=== PATIENT | male | born 1955 | race Caucasian/White ===

== ENCOUNTER → 2017-03-15 | Outpatient (CLI) | payer MEDICARE ==
--- NOTE | 2017-03-15 12:37 | Diagnostic Imaging Report ---
INDICATION: Sudden left eye blindness. TECHNIQUE: Routine non contrast-enhanced axial images were obtained from the skull base to the vertex. COMPARISON: None. FINDINGS: The ventricles and cortical sulci are diffusely prominent, compatible with age-related volume loss. There are confluent areas of abnormal, low attenuation in the periventricular white matter. This is consistent with small vessel ischemic changes; age-indeterminate. There is no prior study available for comparison. There is no midline shift or mass-effect. No acute intra-axial hemorrhage is seen. There are no abnormal areas of increased or decreased density to suggest acute hemorrhage or edema. No extra-axial masses or collections are present. The bony calvarium is intact. The visualized paranasal sinuses are unremarkable. The mastoid air cells are clear. IMPRESSION: 1. No acute intracranial abnormality. No CT evidence of mass, acute infarct or intracranial hemorrhage. 2. Small vessel ischemic changes in the periventricular and subcortical white matter; likely chronic. Dictated by: Dictated on workstation # [id number]
== END ==
LOC: RAD 12:10
PROVIDERS: ATTEND Nurse Practitioner Family
DX: H53.132 Sudden visual loss, left eye (principal)
CPT/HCPCS: 70450

== ENCOUNTER → 2021-05-31 | Outpatient (CLI) | payer MEDICARE | LOC: WOUNDCARE 13:32 | PROVIDERS: ATTEND Surgery | DX: I70.245 Atherosclerosis of native arteries of left leg with ulceration of other part of foot (principal); L97.522 Non-pressure chronic ulcer of other part of left foot with fat layer exposed; T65.222A Toxic effect of tobacco cigarettes, intentional self-harm, initial encounter; F17.218 Nicotine dependence, cigarettes, with other nicotine-induced disorders | CPT/HCPCS: A6260; G0463; 99213 ==

== ENCOUNTER → 2021-05-31 | Outpatient (CLI) | payer MEDICARE ==
--- NOTE | 2021-05-31 17:23 | Diagnostic Imaging Report ---
INDICATION: Soft tissue ulcer. COMPARISON: None FINDINGS: Multiple radiographic views of the left foot were obtained. Patient is status post previous amputation of the 3rd toe. Note is made of swelling and edema of the distal margins of the 2nd toe. Evaluation of the underlying osseous structures suggest subtle abnormal lucent appearance to the medial margins of the tuft of the distal phalanx. Findings are concerning for underlying osteolysis, as can be seen with osteomyelitis. Remaining osseous structures are intact. There is no evidence of acute fracture or dislocation. No unexpected radiopaque foreign bodies are seen. IMPRESSION: 1. Soft tissue swelling of the 2nd toe with findings concerning for potential osteomyelitis of the distal phalanx. Dictated by: Dictated on workstation # [id number]
== END ==
LOC: RAD 14:40
PROVIDERS: ATTEND Surgery
DX: I70.245 Atherosclerosis of native arteries of left leg with ulceration of other part of foot (principal); L97.522 Non-pressure chronic ulcer of other part of left foot with fat layer exposed; T65.222A Toxic effect of tobacco cigarettes, intentional self-harm, initial encounter; F17.218 Nicotine dependence, cigarettes, with other nicotine-induced disorders
CPT/HCPCS: 73630

== ENCOUNTER → 2021-06-09 | Outpatient (CLI) | payer MEDICARE | LOC: WOUNDCARE 14:56 | PROVIDERS: ATTEND Surgery | DX: I70.245 Atherosclerosis of native arteries of left leg with ulceration of other part of foot (principal); L97.522 Non-pressure chronic ulcer of other part of left foot with fat layer exposed; T65.222A Toxic effect of tobacco cigarettes, intentional self-harm, initial encounter; I96 Gangrene, not elsewhere classified; F17.218 Nicotine dependence, cigarettes, with other nicotine-induced disorders | CPT/HCPCS: 99213 ==

== ENCOUNTER → 2021-06-11 | Outpatient (CLI) | payer MEDICARE | LOC: CARD 10:37 | PROVIDERS: ATTEND Internal Medicine Cardiovascular Disease | DX: I34.0 Nonrheumatic mitral (valve) insufficiency (principal); I10 Essential (primary) hypertension | CPT/HCPCS: 93306 ==

== ENCOUNTER → 2021-06-14 | Outpatient (CLI) | payer MEDICARE ==
[~2021-06-14] MED LIST: ASPI-1238 PO; ASPI-808 PO; ATOR20TA66 PO; CLOP75TA28 PO; GBPN600T PO; MIDAZOLAM 5 MG/5 ML (VERSED) VIAL ONE; PANT40TA52 PO; REGADENOSON 0.4 MG/5 ML SYR (LEXISCAN) IV ONE; SULF-11 PO; fentaNYL INJ 100 MCG/2 ML AMP ONE
[2021-06-14] MEDS: CATHETER FLUSH 10 ML SYR IV PRN ×2 (07:37→08:55)
[2021-06-14 08:53] VITALS: BP 161/85
--- NOTE | 2021-06-14 11:06 | Cardiology Stress Test Report ---
Stress Test Report Date of Procedure/Referring: Date of Procedure: Jun 14, 2021 PCP Eva Beard MD Admitting Physician Center/[facility] Indications: CP Baseline Heart Rate: 58 Baseline Blood Pressure: Blood Pressure Systolic: 161 Blood Pressure Diastolic: 85 Baseline Vitals Vital Signs Date Time Temp Pulse Resp B/P (MAP) Pulse Ox O2 Delivery O2 Flow Rate FiO2 06/14/21 08:53 50 16 161/85 (110) 98 Room Air Baseline EKG: Baseline EKG: NSR Summary After explaining the procedure to the patient, he signed a consent and then brought to the stress nuclear laboratory. Patient received 0.4 mg Lexiscan for stress test, ECG, heart rate and blood pressure were monitored continuously. Resting and stress dose of radio tracer were injected, imaging was acquired and reviewed in short axis, horizontal long axis and vertical long axis views. TID: 1.07 SSS: 1 SDS: 1 EF: 60 1. Patient tolerated Lexiscan well 2. Diaphragmatic attenuation with mild decreased uptake at the inferoapical segment with mild reversibility probably due to diaphragmatic attenuation, no significant ischemia or infarction on SPECT images 3. Normal left ventricular size, EF 60% EVA BEARD MD Jun 14, 2021 11:06
== END ==
LOC: CARD 07:45
PROVIDERS: ATTEND Internal Medicine Cardiovascular Disease
DX: I25.10 Atherosclerotic heart disease of native coronary artery without angina pectoris (principal); I10 Essential (primary) hypertension
CPT/HCPCS: 78452; 93017; A9502

== ENCOUNTER → 2021-06-15 | Outpatient (CLI) | payer MEDICARE ==
[~2021-06-15] MED LIST changes: -MIDAZOLAM 5 MG/5 ML (VERSED) VIAL ONE; -REGADENOSON 0.4 MG/5 ML SYR (LEXISCAN) IV ONE; -fentaNYL INJ 100 MCG/2 ML AMP ONE
== END ==
LOC: WOUNDCARE 12:27
PROVIDERS: ATTEND Surgery
DX: I70.245 Atherosclerosis of native arteries of left leg with ulceration of other part of foot (principal); L97.222 Non-pressure chronic ulcer of left calf with fat layer exposed; T65.222A Toxic effect of tobacco cigarettes, intentional self-harm, initial encounter; I96 Gangrene, not elsewhere classified; F17.218 Nicotine dependence, cigarettes, with other nicotine-induced disorders
CPT/HCPCS: 99212

== ENCOUNTER 2021-06-16 13:00 | Day surgery (SDC) | payer MEDICARE ==
[~2021-06-16] VITALS: Ht 170 cm; Wt 77.0 kg
[2021-06-16 11:27] VITALS: BP 145/95
[2021-06-16 11:32] LABS: HEMATOCRIT 53 % (40-54); HEMOGLOBIN 16.5 g/dL (13.3-17.7); MEAN CORPUSCULAR HEMOGLOBIN 30 pg (25-34); MEAN CORPUSCULAR HGB CONC 31 g/dL (32-36); MEAN CORPUSCULAR VOLUME 95 fL (80-99); MEAN PLATELET VOLUME 10.4 fL (9.0-12.2); PLATELET COUNT 251 10^3/uL (130-400); WHITE BLOOD COUNT 8.7 10^3/uL (4.3-11.0)
[2021-06-16 11:34] LABS: BILIRUBIN,URINE NEGATIVE (NEGATIVE); CLARITY,URINE CLEAR; COLOR,URINE YELLOW; GLUCOSE, URINE (UA) NEGATIVE (NEGATIVE); KETONES,URINE NEGATIVE (NEGATIVE); LEUKOCYTE ESTERASE ,URINE TRACE (NEGATIVE); NITRITE,URINE NEGATIVE (NEGATIVE); PROTEIN,URINE NEGATIVE (NEGATIVE)
[2021-06-16] MEDS: NS IV 1000 ML 1,000 ML IV SCH ×3 (11:36→17:16)
--- NOTE | 2021-06-16 11:40 | Diagnostic Imaging Report ---
INDICATION: Preoperative evaluation prior to peripheral angiography and potentially angioplasty.. TECHNIQUE: Single view chest 11:26 AM. CORRELATION STUDY: None FINDINGS: The heart size, mediastinal configuration and pulmonary vascularity are within normal limits. The lungs are clear with no consolidating infiltrate. Very slight tenting perhaps eventration left diaphragm centrally. There is no significant effusion or pneumothorax. Prominent hypertrophic changes right acromioclavicular joint. IMPRESSION: 1. Negative for acute abnormality of the chest. Dictated by: Dictated on workstation # [id number]
[2021-06-16 11:45] LABS: BACTERIA,URINE NEGATIVE /HPF; WBC,URINE 0-2 /HPF
[2021-06-16 11:48] LABS: INR 0.9 (0.8-1.4); PROTHROMBIN TIME PATIENT 12.8 SEC (12.2-14.7)
[2021-06-16 11:56] LABS: ALBUMIN 4.1 GM/DL (3.2-4.5); BILIRUBIN,TOTAL 0.5 MG/DL (0.1-1.0); CALCIUM 9.7 MG/DL (8.5-10.1); CREATININE SERUM 1.03 MG/DL (0.60-1.30); POTASSIUM 4.6 MMOL/L (3.6-5.0); TOTAL PROTEIN 7.2 GM/DL (6.4-8.2)
[~2021-06-16 13:00] MED LIST changes: -ASPI-1238 PO; -ATOR20TA66 PO; -CLOP75TA28 PO; +HEParin (CATH LAB) 2,000 ML IV ONE; +LIDOCAINE 1% INJ 20 ML 20 ML VIAL ONE; +MIDAZOLAM 5 MG/5 ML (VERSED) VIAL IV ONE; +NS IV 1000 ML 1,000 ML ONE; -PANT40TA52 PO; +fentaNYL INJ 100 MCG/2 ML AMP IV ONE
[2021-06-16] MEDS ORDERED: HEParin 1000 UNIT/ML (10ML VIAL) FOR BOLUS ONE (13:26)
[2021-06-16] MEDS ORDERED: MIDAZOLAM 5 MG/5 ML (VERSED) VIAL ONE (13:39)
[2021-06-16] MEDS ORDERED: fentaNYL INJ 100 MCG/2 ML AMP ONE (13:39)
[2021-06-16] MEDS ORDERED: NITRO DRIP 25000 MCG/D5W 250 ML IV ONE (13:39)
--- NOTE | 2021-06-16 14:53 | Conscious Sedation/ASA ---
Conscious Sedation Pre-Proced Time 12:00 ASA Score 3 For ASA 3 and 4: Consider anesthesia and medical clearance. Also, for patients with a history of failed moderate sedation consider anesthesia. Airway Lungs Heart ASA score ASA 1: a normal healthy patient ASA 2: a patient with a mild systemic disease (mid diabetes, controlled hypertension, obesity ASA 3: a patient with a severe systemic disease that limits activity (angina, COPD, prior Myocardial infarction) ASA 4: a patient with an incapacitating disease that is a constant threat to life (CHF, renal failure) ASA 5: a moribund patient not expected to survive 24 hrs. (ruptured aneurysm) ASA 6: a declared brain- patient whose organs are being harvested. For emergent operations, add the letter E after the classification Mallampati Classification Grade 3 Sedation Plan Analgesia, Amnesia, Plan communicated to team members, Discussed options with patient/fam, Discussed risks with patient/fam The patient is an appropriate candidate to undergo the planned procedure, sedation, and anesthesia. The patient immediately re-assessed prior to indication. EVA BOWERS MD Jun 16, 2021 14:53
[2021-06-16] MEDS ORDERED: PATIENT MAY USE OWN MEDS, ALL PO SCH (15:00)
--- NOTE | 2021-06-16 15:03 | Cardiac Cath Report ---
Cardiac Cath Report Physician (s)/Maintenance Shop Laborer (s) Physician EVA BOWERS MD Pre-Procedure Diagnosis Pre-Procedure Diagnosis: Peripheral arterial disease Post-Procedure Note Procedure Start Date: Jun 16, 2021 Name of Procedure: Bilateral lower extremity runoff Third order Additional imaging x3 Stenting of the left SFA Balloon angioplasty to the left anterior tibial Findings/Procedure Note PROCEDURE NOTE: 65-year-old with known history of peripheral arterial disease, had toe ulcer, had an abnormal BATSHEVA more significant on the left with a ulcer on the left second toe, scheduled for peripheral angiogram possible angioplasty. After explaining the procedure to the patient, all pros and cons were explained, all questions were answered. The patient signed the consent and then he was placed on the cardiac catheterization laboratory. The patient was placed on the cardiac catheterization laboratory. Groin was prepped SL fashion local anesthesia was used. Sheath placed in the right femoral artery, runoff to the right leg was done then rim catheter was advanced to the abdominal aorta at the bifurcation and I did angiogram evaluated the bifurcation, I could not advance the wire through the left with a rim catheter, used UF catheter for better support then advanced a Storq catheter to the proximal SFA, advanced a straight catheter to the left common femoral artery and did runoff to the left leg then DSA below the knee. Patient has severe stenosis at multiple segment proximal SFA moderate stenosis at the mid SFA and occlusion of the anterior tibial artery. Patient was given 5000 units of heparin, wire was advanced and the sheath was exchanged into a long 6 Lithuanian sheath. I placed the sheath at the ostium of the left SFA subsequently there was no flow retracted the sheath to the left common femoral, patient continued to have severe spasm with no flow. I had difficulty advancing the wire but after multiple maneuvers I was able to advance command 18 wire down to the mid SFA then using the mini catheter I remove the command 18 advanced command 14 wire down to the posterior tibial artery. Did not balloon dilatation to the left SFA using Avery fourteen 5 x 200 with 1 inflation then deployed absolute Pro stent to the proximal left SFA 6 x 80 post dilated with 5.5 balloon with good results then I advanced mini catheter down to the anterior tibial artery and did injection the anterior tibial artery which was occluded advanced command 14 down to the distal AT then proceeded with balloon angioplasty using Avery fourteen 2.5 x 120 mm with multiple inflation down to the ankle then angiogram showed significant improvement in the blood flow. Still occlusion below the ankle. I retracted the catheter and did an injection in the tibioperoneal trunk and evaluated the posterior tibial and the peroneal artery down to the foot which showed excellent flow. The sheath was retracted and exchanged back to short 6 Lithuanian sheath and advanced rim catheter again did evaluation to the common iliac artery with the aneurysm and the severe stenosis. I decided against proceeding with intervention on that artery due to the high risk of rupture and complication. Patient will need referral for vascular surgery FINDINGS: Right lower extremity, moderate stenosis at the mid right common iliac artery, moderate to severe stenosis at the ostial/proximal right common femoral artery with good flow down to the trifurcation, three-vessel below the trifurcation. 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 Successful stenting of the proximal left SFA using absolute Pro 6 x 80 with excellent results 2. Successful balloon angioplasty to a chronically occluded anterior tibial artery and reestablishment of flow down to the foot 3. Moderate disease at the mid left SFA 4. 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 Moderate stenosis of the right common iliac artery with moderate severe stenosis at the proximal right SFA DISCUSSION AND RECOMMENDATIONS: Patient was started on aspirin and Plavix, he will be referred for vascular surgery evaluation versus high risk intervention with covered stent to the iliac artery Anesthesia Type: Conscious Sedation Estimated blood loss (mL): 30 ml Contrast Amount: 92 ml Total Radiation Dose: 903 mGy Post-Procedure Diagnosis Post-operative diagnosis: Ischemic foot ulcer Peripheral artery disease Hyperlipidemia Tobaccoism EVA BOWERS MD Jun 16, 2021 15:03
[2021-06-16] MEDS ORDERED: ASPIRIN 325 MG (5 GR) TABLET ONE (15:09)
[2021-06-16] MEDS ORDERED: CLOPIDOGREL 300 MG (PLAVIX) TABLET PO ONE (15:10)
[2021-06-16 15:30] VITALS: BP 131/77
[2021-06-16 15:45] VITALS: BP 147/84
[2021-06-16 16:00] VITALS: BP 154/94
[2021-06-16] MEDS ORDERED: oxyCODONE/APAP 5/325MG (PERCOCET 5) TABLET PO PRN (17:00)
[2021-06-16] MEDS ORDERED: oxyCODONE/APAP 5/325MG (PERCOCET 5) TABLET ONE (17:04)
[2021-06-16] MEDS: GABAPENTIN 600 MG (NEURONTIN) TAB PO SCH ×2 (17:09→21:12)
[2021-06-16] MEDS: NICOTINE 21 MG (NICODERM) PATCH TD SCH (17:09)
[2021-06-16] MEDS: TRIM/SULFAMETH 160/800 (SEPTRA DS) TAB PO SCH (17:09)
[2021-06-16] MEDS ORDERED: ONDANSETRON 4 MG/2 ML (SDV) Z0FRAN IVP PRN (18:30)
[2021-06-16 20:00] VITALS: BP 176/84
[2021-06-16] MEDS ORDERED: NON-FORMULARY MEDICATION 1 EA EA (Sulfamethoxazole/Trimethoprim (Sulfamethoxazole-Tmp Ss T PO SCH (21:00)
[2021-06-17] VITALS: BP 138/75
[2021-06-17] MEDS: NS IV 1000 ML 1,000 ML IV SCH (01:18)
[2021-06-17 04:00] VITALS: BP 132/54
[2021-06-17 05:08] LABS: HEMATOCRIT 47 % (40-54); MEAN CORPUSCULAR HEMOGLOBIN 30 pg (25-34); MEAN CORPUSCULAR HGB CONC 32 g/dL (32-36); MEAN CORPUSCULAR VOLUME 94 fL (80-99); MEAN PLATELET VOLUME 9.8 fL (9.0-12.2); PLATELET COUNT 218 10^3/uL (130-400); WHITE BLOOD COUNT 11.5 10^3/uL (4.3-11.0)
[2021-06-17 05:20] LABS: POTASSIUM 4.2 MMOL/L (3.6-5.0)
[2021-06-17 05:21] LABS: CALCIUM 9.2 MG/DL (8.5-10.1)
[2021-06-17 05:25] LABS: CREATININE SERUM 0.81 MG/DL (0.60-1.30)
[2021-06-17] MEDS ORDERED: PANT40TA52 PO (06:15)
[2021-06-17] MEDS ORDERED: CLOP75TA28 PO (06:15)
[2021-06-17] MEDS ORDERED: ATOR20TA66 PO (06:15)
[2021-06-17] MEDS ORDERED: ASPI-1238 PO (06:15)
--- NOTE | 2021-06-17 06:16 | Discharge Inst-Post CATH ---
Discharge Inst-CATH/EP Problems Reviewed?: Yes Post Cardiac Cath/EP D/C Inst Follow Up/Plan Appointment with Dr Beard in 2-4 weeks <b>CARDIAC CATH/EP PROCEDURE DISCHARGE INSTRUCTIONS</b> ACTIVITY * Go Home directly and rest. * Limit activity of the leg (or wrist if it was used) for 7 days including aerobics, swimming, jogging, bicycling, etc. * Restrict stair-climbing for 7 days if possible, if not, climb up with your non-cath leg, then bring together on the same step. * Avoid lifting, pushing, pulling or excessive movement of the affected extremity for 7 days. * Customary sexual activity may be resumed after 2 days-use caution not to use a position that strains or causes pain to the affected extremity. * No driving for 24 hours. * NO SMOKING. * Avoid straining for bowel movements for 7 days. * Gentle walking on level ground is allowed. * Returning to work will depend on the type of procedure and the results. Your doctor will discuss this with you. CALL YOUR DOCTOR FOR ANY OF THE FOLLOWING: *If bleeding from the puncture site occurs- Apply gentle pressure to site with clean cloth and call your doctor or EMS. * If a knot or lump forms under the skin, increases in size, or causes pain. * If bruising appears to be worsening or moving further down your leg instead of disappearing. * Temperature above 101 F. CARE OF YOUR GROIN INCISION; * Bruising or purple discoloration of the skin near the puncture site is common. * You may shower only, no bathtub bathing for 5 days. Be careful to avoid slipping as your leg may feel stiff. * If a closure device was used on your femoral artery, please see the attached guide regarding care of the device and your leg. * Leave dressing on FOR 24 hours. CARE OF YOUR WRIST INCISION; * Bruising or purple discoloration of the skin near the puncture site is common. * You may shower. * DO NOT submerge wrist. * Leave dressing on FOR 24 hours. EVA BEARD MD Jun 17, 2021 06:16
[2021-06-17 08:00] VITALS: BP 133/76
[2021-06-17] MEDS: TRIM/SULFAMETH 160/800 (SEPTRA DS) TAB PO SCH (08:17)
[2021-06-17] MEDS: GABAPENTIN 600 MG (NEURONTIN) TAB PO SCH (08:17)
[2021-06-17] MEDS: NICOTINE 21 MG (NICODERM) PATCH TD SCH (08:18)
--- NOTE | 2021-06-17 08:38 | Cardiology Progress Note ---
Subjective Date Seen by Provider: Jun 17, 2021 Time Seen by Provider: 08:36 Subjective/Events-last exam Patient was seen at bedside, laying down comfortably, no leg pain. Groin is healing well Review of Systems General: No Chills, No Night Sweats, No Fatigue, No Malaise, No Appetite, No O ther HEENT: No Head Aches, No Visual Changes, No Eye Pain, No Ear Pain, No Dys phasia, No Sinus Congestion, No Post Nasal Drip, No Sore Throat, No Other Pulmonary: No Dyspnea, No Cough, No Pleuritic Chest Pain, No Other Cardiovascular: No: Chest Pain, Palpitations, Orthopnea, Paroxysmal Noc. Dyspnea, Edema, Lt Headedness, Other Objective-Cardiology Exam Last Set of Vital Signs Vital Signs 06/17/21 08:00 Temp 36.3 Pulse 66 Resp 24 B/P (MAP) 133/76 (95) Pulse Ox 93 O2 Delivery Room Air I&O Intake and Output 06/17/21 00:00 Intake Total 1200 ml Output Total 700 ml Balance 500 ml Intake Oral 200 ml IV Total 1000 ml Output Emesis 700 ml # Voids 1 Daily Weight Change No General: Alert, Oriented X3, Cooperative HEENT: Atraumatic, PERRLA Neck: Supple, No JVD, No Thyromegaly Lungs: Clear to Auscultation, Normal Air Movement Heart: Regular Rate, Normal S1, Normal S2, No Murmurs Abdomen: Normal Bowel Sounds, Soft, No Tenderness, No Hepatosplenomegaly, No Masses Extremities: No Clubbing, No Cyanosis, No Edema, No Tenderness/Swelling, Other (Diminished pedal pulse) Skin: No Rashes, No Significant Lesion, Other (Ulcer on the left second toe) Neuro: Normal Gait, Normal Speech, Strength at 5/5 X4 Ext, Normal Tone, Sensation Intact Psych/Mental Status: Mental Status NL, Mood NL Results Lab Laboratory Tests 06/16/21 11:24 06/17/21 05:02 A/P-Cardiology Admission Diagnosis Ischemic foot ulcer Peripheral arterial disease Hypertension Hyperlipidemia Assessment/Plan Peripheral arterial disease, extensive as described below. Status post stenting to the left SFA and balloon angioplasty to the left anterior tibial artery 1. Successful stenting of the proximal left SFA using absolute Pro 6 x 80 with excellent results 2. Successful balloon angioplasty to a chronically occluded anterior tibial artery and reestablishment of flow down to the foot 3. Moderate disease at the mid left SFA 4. 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 Moderate stenosis of the right common iliac artery with moderate severe stenosis at the proximal right SFA Patient has severe stenosis with aneurysm on the left common iliac artery, patent referred for vascular intervention Hypertension, monitor blood pressure, restart medication Hyperlipidemia, continue current medication monitor lipids Tobaccoism, educated on smoking cessation EVA BOWERS MD Jun 17, 2021 08:38
[2021-06-17] MEDS ORDERED: NICOTINE PATCH REMOVAL TP SCH (08:59)
[2021-06-17] MEDS ORDERED: ASPIRIN E.C. 81 MG (ECOTRIN) TAB PO SCH (09:00)
[2021-06-17] MEDS ORDERED: CLOPIDOGREL 75 MG (PLAVIX) TABLET PO SCH (09:00)
[2021-06-17] MEDS ORDERED: PANTOPRAZOLE 40 MG (PROTONIX) TAB PO SCH (09:00)
[2021-06-17] MEDS ORDERED: NICOTINE 21 MG (NICODERM) PATCH TD SCH (09:00)
== END 2021-06-17 09:40 | disposition home or self-care (01) ==
LOC: CATH 13:00 → CSD 16:14 → CATH 06-17 09:40
PROVIDERS: ATTEND Internal Medicine Cardiovascular Disease
DX: I70.92 Chronic total occlusion of artery of the extremities (principal); L97.529 Non-pressure chronic ulcer of other part of left foot with unspecified severity; I77.1 Stricture of artery; I70.202 Unspecified atherosclerosis of native arteries of extremities, left leg; I70.203 Unspecified atherosclerosis of native arteries of extremities, bilateral legs; I10 Essential (primary) hypertension; I65.23 Occlusion and stenosis of bilateral carotid arteries; R07.89 Other chest pain; F17.210 Nicotine dependence, cigarettes, uncomplicated; Z79.82 Long term (current) use of aspirin; Z79.899 Other long term (current) drug therapy; E78.5 Hyperlipidemia, unspecified
CPT/HCPCS: 37226; 37232; 71045; 80048; 80053; 80061; 81000; 85027 ×2; 85610; 85730; 87081; C1725 ×3; C1760; C1769 ×3; C1887 ×3; C1894 ×3; 36415

== ENCOUNTER → 2021-06-21 | Outpatient (CLI) | payer MEDICARE ==
[~2021-06-21] MED LIST changes: +ASPI-1238 PO; +ATOR20TA66 PO; +CLOP75TA28 PO; -HEParin (CATH LAB) 2,000 ML IV ONE; -LIDOCAINE 1% INJ 20 ML 20 ML VIAL ONE; -MIDAZOLAM 5 MG/5 ML (VERSED) VIAL IV ONE; -NS IV 1000 ML 1,000 ML ONE; +PANT40TA52 PO; -fentaNYL INJ 100 MCG/2 ML AMP IV ONE
== END ==
LOC: WOUNDCARE 11:37
PROVIDERS: ATTEND Surgery
DX: I70.245 Atherosclerosis of native arteries of left leg with ulceration of other part of foot (principal); L97.522 Non-pressure chronic ulcer of other part of left foot with fat layer exposed; T65.222A Toxic effect of tobacco cigarettes, intentional self-harm, initial encounter; I96 Gangrene, not elsewhere classified; F17.218 Nicotine dependence, cigarettes, with other nicotine-induced disorders
CPT/HCPCS: 99212

== ENCOUNTER → 2021-07-01 | Outpatient (CLI) | payer MEDICARE | LOC: WOUNDCARE 13:23 | PROVIDERS: ATTEND Surgery | DX: I70.245 Atherosclerosis of native arteries of left leg with ulceration of other part of foot (principal); L97.524 Non-pressure chronic ulcer of other part of left foot with necrosis of bone; T65.222A Toxic effect of tobacco cigarettes, intentional self-harm, initial encounter; M86.472 Chronic osteomyelitis with draining sinus, left ankle and foot; I96 Gangrene, not elsewhere classified; F17.218 Nicotine dependence, cigarettes, with other nicotine-induced disorders | CPT/HCPCS: 99212 ==

== ENCOUNTER → 2021-07-08 | Outpatient (CLI) | payer MEDICARE | LOC: WOUNDCARE 14:28 | PROVIDERS: ATTEND Surgery | DX: I70.245 Atherosclerosis of native arteries of left leg with ulceration of other part of foot (principal); I96 Gangrene, not elsewhere classified; L97.524 Non-pressure chronic ulcer of other part of left foot with necrosis of bone; T65.222A Toxic effect of tobacco cigarettes, intentional self-harm, initial encounter; F17.218 Nicotine dependence, cigarettes, with other nicotine-induced disorders; M86.472 Chronic osteomyelitis with draining sinus, left ankle and foot | CPT/HCPCS: 99212 ==

== ENCOUNTER → 2021-07-15 | Outpatient (CLI) | payer MEDICARE | LOC: WOUNDCARE 10:07 | PROVIDERS: ATTEND Surgery | DX: I70.245 Atherosclerosis of native arteries of left leg with ulceration of other part of foot (principal); I96 Gangrene, not elsewhere classified; L97.522 Non-pressure chronic ulcer of other part of left foot with fat layer exposed; T65.222A Toxic effect of tobacco cigarettes, intentional self-harm, initial encounter; F17.218 Nicotine dependence, cigarettes, with other nicotine-induced disorders; M86.472 Chronic osteomyelitis with draining sinus, left ankle and foot | CPT/HCPCS: 99213 ==

== ENCOUNTER → 2021-07-20 | Outpatient (CLI) | payer MEDICARE | LOC: WOUNDCARE 09:20 | PROVIDERS: ATTEND Family Medicine | DX: I70.245 Atherosclerosis of native arteries of left leg with ulceration of other part of foot (principal); L97.522 Non-pressure chronic ulcer of other part of left foot with fat layer exposed; T65.222A Toxic effect of tobacco cigarettes, intentional self-harm, initial encounter; M86.472 Chronic osteomyelitis with draining sinus, left ankle and foot; I96 Gangrene, not elsewhere classified; F17.218 Nicotine dependence, cigarettes, with other nicotine-induced disorders | CPT/HCPCS: 99213 ==

== ENCOUNTER → 2021-07-26 | Outpatient (CLI) | payer MEDICARE | LOC: WOUNDCARE 12:30 | PROVIDERS: ATTEND Family Medicine | DX: I70.245 Atherosclerosis of native arteries of left leg with ulceration of other part of foot (principal); L97.522 Non-pressure chronic ulcer of other part of left foot with fat layer exposed; T65.222A Toxic effect of tobacco cigarettes, intentional self-harm, initial encounter; M86.472 Chronic osteomyelitis with draining sinus, left ankle and foot; F17.218 Nicotine dependence, cigarettes, with other nicotine-induced disorders | CPT/HCPCS: 99212 ==